=== PATIENT | female | born 1995 | race Caucasian/White ===

== ENCOUNTER → 2020-01-10 | Outpatient (CLI) | payer OTHER ==
[~2020-01-10] MED LIST: ALBU90OI INH; AMOX500 PO; AZIT250 PO; CEPH500 PO; CYCL10 PO; IBUP200; LIDO5TP TOP; NEOPOLHCSU OT; Naprosyn500 MG PO; PRENATAL TABLE1 EAC2; Zofran4 MG PO
== END | disposition home or self-care (01) ==
LOC: LAB SHORT 14:43 → LAB 14:43
DX: Z34.03 Encounter for supervision of normal first pregnancy, third trimester (principal); Z3A.36 36 weeks gestation of pregnancy
CPT/HCPCS: 87081; 87150

== ENCOUNTER 2021-01-28 15:38 | Emergency (ER) | payer OTHER ==
[~2021-01-28] VITALS: Ht 167.6 cm; Wt 124.7 kg
== END 2021-01-28 19:30 | disposition home or self-care (01) ==
LOC: ER 15:38
DX: G43.909 Migraine, unspecified, not intractable, without status migrainosus (principal); J45.909 Unspecified asthma, uncomplicated
CPT/HCPCS: 96372; 99283-25; A9270; J3030

== ENCOUNTER → 2021-08-06 | Outpatient (CLI) | payer OTHER | END | disposition home or self-care (01) | LOC: LAB SHORT 17:30 → LAB 17:30 | PROVIDERS: Family Medicine | DX: Z12.4 Encounter for screening for malignant neoplasm of cervix (principal) | CPT/HCPCS: G0123 ==

== ENCOUNTER → 2025-01-06 | Outpatient (CLI) | payer OTHER | LOC: LAB 08:29 → LAB SHORT 08:29 | DX: M79.605 Pain in left leg (principal) | CPT/HCPCS: 85379 ==